=== PATIENT | female | born 1990 | race Caucasian/White ===

== ENCOUNTER 2016-07-09 20:00 | Emergency (ER) | payer BC ==
[2016-07-09 20:21] VITALS: BP 151/91; PULSE 104; TEMP 98.3; BMI 35.9
[2016-07-09] MEDS ORDERED: DIPHTH,PERTUSS(ACELL),TET 0.5 ML DISP.SYRIN IM ONE (23:11)
--- NOTE | 2016-07-09 23:16 | PDOC ---
History of Present Illness - General History Source: Patient Exam Limitations: No Limitations - History of Present Illness Initial Comments: 07/09/16 23:19 The patient is a 26 year old female, with no significant past medical history, who presents to the emergency department with left index finger laceration that occurred today. She states that she was using a kitchen knife to cut something, when she accidentally cut her finger. She states that it was bleeding mildly and wrapped it up immediately and came to the ED. The patient is able to flex her finger without any complication. She does not remember her last tetanus shot. She denies any other injuries. Allergies: None Past surgical history: None reported Social history: No alcohol, tobacco or drug use reported <Kev Wang - Last Filed: 07/09/16 23:19> - General History Source: Patient Exam Limitations: No Limitations <Oscar Villalta - Last Filed: 07/09/16 23:30> - General Chief Complaint: Laceration Stated Complaint: LACERATION Time Seen by Provider: 07/09/16 23:03 Past History <Kev Wang - Last Filed: 07/09/16 23:19> - Past Medical History Psychiatric Problems: Yes (DEPRESSION/ ANXIETY) - Immunization History Immunization Up to Date: No - Psycho/Social/Smoking Cessation Hx Anxiety: Yes Suicidal Ideation: No Smoking History: Never smoked Hx Alcohol Use: No Substance Use Type: None <Oscar Villalta - Last Filed: 07/09/16 23:30> - Past Medical History Allergies/Adverse Reactions: Allergies Allergy/AdvReac Type Severity Reaction Status Date / Time No Known Allergies Allergy Verified 07/09/16 20:13 Home Medications: Ambulatory Orders Bupropion HCl [Wellbutrin Xl -] 300 mg PO DAILY 01/16/14 Levomefolate/Algal Oil [Deplin-Algal Oil 15 mg Capsule] 1 each PO DAILY Paroxetine HCl [Paxil -] 30 mg PO DAILY 01/16/14 Methocarbamol [Robaxin -] 500 mg PO BID #14 tablet 01/17/14 Review of Systems - Review of Systems Able to Perform ROS?: Yes Comments:: 07/09/16 23:19 GENERAL/CONSTITUTIONAL: No fever or chills. No weakness. HEAD, EYES, EARS, NOSE AND THROAT: No change in vision. No ear pain or discharge. No sore throat. MUSCULOSKELETAL: No joint or muscle swelling or pain. No neck or back pain. SKIN: +Left 2nd digit finger laceration. No rash NEUROLOGIC: No headache, vertigo, loss of consciousness, or change in strength/ sensation. ENDOCRINE: No increased thirst. No abnormal weight change HEMATOLOGIC/LYMPHATIC: No anemia, easy bleeding, or history of blood clots. ALLERGIC/IMMUNOLOGIC: No hives or skin allergy. <Kev Wang Saranya - Last Filed: 07/09/16 23:19> *Physical Exam - Vital Signs Last Vital Signs Temp Pulse Resp BP Pulse Ox 98.3 F 104 H 20 151/91 99 07/09/16 20:14 07/09/16 20:14 07/09/16 20:14 07/09/16 20:14 07/09/16 20:14 - Physical Exam Comments: 07/09/16 23:20 GENERAL: Awake, alert, and fully oriented, in no acute distress HEAD: No signs of trauma, normocephalic, atraumatic EXTREMITIES: Normal inspection, Normal range of motion, no edema. No clubbing or cyanosis. NEUROLOGICAL: Cranial nerves II through XII grossly intact. Normal speech, normal gait, no focal sensorimotor deficits SKIN: +0.25 cm laceration along the crease of the palmar side of the DIP of the second digit of the left hand. Warm, Dry, normal turgor, no rashes or lesions noted. <Estefany Wangprashant Beaver - Last Filed: 07/09/16 23:19> - Vital Signs Last Vital Signs Temp Pulse Resp BP Pulse Ox 98.3 F 104 H 20 151/91 99 07/09/16 20:14 07/09/16 20:14 07/09/16 20:14 07/09/16 20:14 07/09/16 20:14 <Oscar Villalta - Last Filed: 07/09/16 23:30> Procedures - Laceration/Wound Repair Left 2nd digit Wound Length: to 2.5 cm Wound Explored: clean Wound's Depth, Shape: superficial Irrigated w/ Saline: Yes Betadine Prep: Yes Anesthesia: 1% Lidocaine Amount of Anesthetic (ccs): 1 Wound Debrided: minimal Wound Repaired With: Sutures Suture Size/Type: 4:0 Number of Sutures: 1 Layer Closure: No Sterile Dressing Applied: No Splint Applied: No <Oscar Villalta - Last Filed: 07/09/16 23:30> Medical Decision Making - Medical Decision Making 07/09/16 23:12 A portion of this note was documented by scribe services under my direction. I have reviewed the details of the note, within reason, and agree with the documentation with the following case summary and management plan written by me. Patient treated in the ED. Nursing notes are reviewed and incorporated into the medical decision-making. Vital signs reviewed. Peripheral IV access obtained by the nurse, laboratory studies are drawn and sent, reviewed and interpreted by myself. Vital Signs Temp Pulse Resp BP Pulse Ox 98.3 F 104 H 20 151/91 99 07/09/16 20:14 07/09/16 20:14 07/09/16 20:14 07/09/16 20:14 07/09/16 20:14 26-year-old female with no past medical history, [id number], presents with approximate 0.25 cm laceration along the crease of the palmar side of the DIP of the second digit of the left hand. Last tetanus is unknown. Patient is able to flex and extend. No evidence of tendon injury. Patient is neurovascular intact. We'll update tetanus. We'll place 1 suture in. Scar wound precautions given. 07/09/16 23:28 I discussed the physical exam findings, ancillary test results and final diagnoses with the patient. I answered all of the patient's questions. The patient was satisfied with the care received and felt comfortable with the discharge plan and treatment plan. The patient will call their primary care physician within 24 hours to arrange follow-up and will return to the Emergency Department with any new, persistant or worsening symptoms. <Oscar Villalta - Last Filed: 07/09/16 23:30> *DC/Admit/Observation/Transfer - Attestations Scribe Attestion: 07/09/16 23:20 Documentation prepared by Kev Wang, acting as medical records administrator for Oscar Villalta MD <Kev Wang - Last Filed: 07/09/16 23:19> - Discharge Dispostion Admit: No <Oscar Villalta - Last Filed: 07/09/16 23:30> Diagnosis at time of Disposition: Laceration - Discharge Dispostion Disposition: HOME Condition at time of disposition: Improved - Referrals Referrals: Josef Swann MD [Primary Care Provider] - - Patient Instructions Printed Discharge Instructions: DI for Laceration Repair, How to Care for a Laceration After Repair Additional Instructions: Apply a thin layer of bacitracin every 12 hours for the next 48 hours. You may apply a bandage to cover the wound. To minimize scarring, please minimize sun exposure. For pain, you may take 650 g of Tylenol every 4 hours as needed. This suture that he had been placed need to be removed in 5-7 days. If you notice any redness or any infections, please return to the ED for further evaluation. You have received a tetanus booster today.
== END 2016-07-09 23:36 | disposition home or self-care (01) ==
LOC: JER 20:00 → JERFT 20:00 → JER 23:36
PROC: 3E0234Z Introduction of Serum, Toxoid and Vaccine into Muscle, Percutaneous Approach (ICD-10-PCS; principal; 2016-07-09)
PROC: 0HQGXZZ Repair Left Hand Skin, External Approach (ICD-10-PCS; 2016-07-09)
DX: S61.211A Laceration without foreign body of left index finger without damage to nail, initial encounter (principal); W26.0XXA Contact with knife, initial encounter; Y93.G1 Activity, food preparation and clean up; Y92.010 Kitchen of single-family (private) house as the place of occurrence of the external cause
CPT/HCPCS: 90715; 99282-25